=== PATIENT | male | born 1975 | race Caucasian/White ===

== ENCOUNTER 2016-10-24 20:07 | Emergency (ER) | payer SELFPAY ==
[2016-10-25 00:14] VITALS: BP 162/11
== END 2016-10-25 00:14 | disposition home or self-care (01) ==
LOC: ED 20:07
DX: S61.211A Laceration without foreign body of left index finger without damage to nail, initial encounter (principal); M20.012 Mallet finger of left finger(s); W45.8XXA Other foreign body or object entering through skin, initial encounter; Y93.89 Activity, other specified; Y99.8 Other external cause status; Y92.89 Other specified places as the place of occurrence of the external cause
CPT/HCPCS: 90715; J0690; J1885; Q0092